=== PATIENT | male | born 1960 | race Caucasian/White ===

== ENCOUNTER 2019-04-19 15:08 | Outpatient (CLI) | payer OTHER, SELFPAY ==
--- NOTE | 2019-04-19 15:31 | CT_ITS ---
WS: [id number] CT CERVICAL SPINE TECHNIQUE: Noncontrast CT of the cervical spine with coronal and sagittal reformatted images. CLINICAL INFORMATION: CERVICAL STENOSIS OF SPINE COMPARISON: MRI 12 16,019 DLP: [id number] scans at [facility] use at least one of these dose optimization techniques: automat ed exposure control; mA and/or kV adjustment per patient size (includes targeted exams where dose is matched to clinical indication); or iterative reconstruction. FINDINGS: Straightening of the normal cervical lordosis. Mild spondylitic changes. Anterior hypertrophic change s C6 and C7. C2-C3: Normal. C3-C4: Mild facet arthropathy. Mild right and no significant left foraminal narrowing. Tiny shallow c entral protrusion. C4-C5: Disc osteophyte complex with endplate ridging. Moderate bilateral bony foraminal narrowing lef t greater than right. Uncovertebral joint hypertrophy. Mild central canal stenosis. C5-C6: Disc osteophyte complex with endplate ridging. Mild central canal stenosis. Severe left and mi ld right bony foraminal narrowing. Mild to moderate facet arthropathy. C6-C7: Disc osteophyte complex with endplate ridging. Mild central canal stenosis. Severe left and mi ld to moderate right bony foraminal narrowing. Uncovertebral joint hypertrophy. C7-T1: Tiny central protrusion. Spinal canal and foramen are patent. Visualized posterior nasopharynx: Normal. Prevertebral soft tissues: Normal. CT/CT cervical spin wo con* [id number] IMPRESSION: 1. Straightening of the normal cervical lordosis with mild spondylitic changes . 2. Mild central canal stenosis C4-C5 C5-C6 and C6-C7 due to disc osteophyte co mplexes. 3. Multilevel bony foraminal narrowing worse at left C4-C5, left C5-C6 and lef t C6-C7.
== END 2019-04-19 15:09 | disposition home or self-care (01) ==
LOC: RADWPI 15:12
PROVIDERS: Visit Provider Licensed Practical Nurse
DX: M48.02 Spinal stenosis, cervical region (principal); M47.892 Other spondylosis, cervical region
CPT/HCPCS: 72125

== ENCOUNTER → 2019-12-30 10:02 | Outpatient (BNVA) | payer OTHER, SELFPAY | PROVIDERS: Visit Provider Licensed Practical Nurse | DX: M43.12 Spondylolisthesis, cervical region (principal); M50.020 Cervical disc disorder with myelopathy, mid-cervical region, unspecified level | CPT/HCPCS: 99214 ==

== ENCOUNTER 2020-01-10 13:50 | Outpatient (CLI) | payer OTHER, SELFPAY ==
--- NOTE | 2020-01-10 14:30 | MR_ITS ---
WS: [id number] MRI CERVICAL SPINE HISTORY: M43.12 Spondylolisthesis, cervical region COMPARISON: 04/01/2019 and 04/19/2019 Straightening of the normal cervical lordosis. Mild spondylitic changes at all levels. Degenerative d isc space narrowing and osteophytes. Signal within the cervical cord is normal. Visualized posterior fossa is unremarkable. Craniocervical junction, C1 and C2 relationship, odontoid process and soft tissues are normal. C2-C3: Normal. C3-C4: Shallow central disc protrusion without stenosis. Minimal narrowing of the RIGHT foramen as be fore. C4-C5: Diffuse osteophytic ridging and annular disc bulging with facet arthritis. Complete effacement of ventral CSF with contact on the ventral cord. Moderate to severe central and bilateral foraminal stenosis. C5-C6: Mild diffuse annular disc bulging with facet arthritis. Small disc osteophyte complex proximal LEFT foramen. Mild central and bilateral foraminal stenosis, greatest on the LEFT. C6-C7: Diffuse annular disc bulging and osteophytosis. Mild central with moderate bilateral foraminal stenosis. Slightly greater stenosis on the LEFT. C7-T1: Shallow RIGHT paracentral disc protrusion. No stenosis. Paraspinal soft tissue are normal. MR/MR cervical spin wo con* [id number] IMPRESSION: 1. Moderate to severe central and bilateral foraminal stenosis at C4-5 due to disc osteophyte disease. 2. Mild central and bilateral foraminal stenosis at C5-6. 3. Mild central and moderate bilateral foraminal stenosis at C6-7. 4. Mild progression of degenerative changes since 04/01/2019.
--- NOTE | 2020-01-10 15:15 | XR_ITS ---
WS: [id number] LATERAL CERVICAL SPINE: 3 view. Lateral radiographs are performed in upright neutral, flexion and extension to the patient's toleranc e. HISTORY: Neck pain COMPARISON: 04/01/2019 Straightening of the normal cervical lordosis. 5 mm osteophytes extend posteriorly from C4 and C5. Mo derate disc space narrowing at C6-7. Less than 2 mm retrolisthesis of C4 during extension. No instabi lity. XR/XR cervical spine fl/ex [id number] IMPRESSION: 1. Less than 2 mm retrolisthesis of C4 during extension. 2. No significant instability. Vertebral body osteophytes extend posteriorly towards the thecal sac at the C4- 5 level.
== END 2020-01-10 13:51 | disposition home or self-care (01) ==
LOC: RADWPI 13:52
PROVIDERS: Visit Provider Licensed Practical Nurse
DX: M43.12 Spondylolisthesis, cervical region (principal); M50.020 Cervical disc disorder with myelopathy, mid-cervical region, unspecified level; M25.78 Osteophyte, vertebrae; M48.02 Spinal stenosis, cervical region
CPT/HCPCS: 72040; 72141

== ENCOUNTER → 2020-01-20 11:27 | Outpatient (BNVA) | payer OTHER, SELFPAY | PROVIDERS: Visit Provider Licensed Practical Nurse | DX: M43.12 Spondylolisthesis, cervical region (principal); M50.020 Cervical disc disorder with myelopathy, mid-cervical region, unspecified level | CPT/HCPCS: 99213 ==

== ENCOUNTER → 2021-02-11 07:56 | Outpatient (BNVA) | payer OTHER, SELFPAY | PROVIDERS: PCP Family Medicine; Referring Provider Specialist; Visit Provider Specialist | DX: M50.020 Cervical disc disorder with myelopathy, mid-cervical region, unspecified level (principal); Z87.891 Personal history of nicotine dependence | CPT/HCPCS: 95910 ==

== ENCOUNTER 2021-07-13 08:41 | Outpatient (CLI) | payer OTHER, SELFPAY ==
--- NOTE | 2021-07-13 09:02 | IR_ITS ---
WS: [id number] MYELOGRAM CERVICAL SPINE Fluoroscopic guided cervical myelogram CLINICAL INFORMATION: CERVICAL DISC DISORDER AT C4-C5 LEVEL W/MYELOPATHY COMPARISON: None. TECHNIQUE: The procedure, including risks, benefits, and complications, were discussed with the patie nt who agreed to proceed. A timeout was performed to confirm correct patient, procedure, and site. Using sterile technique, the patient was prepped and draped in the usual sterile fashion. After admin istration of local anesthesia using 1% preservative-free lidocaine and using fluoroscopic guidance, a 22-gauge spinal needle was advanced into the subarachnoid space at the L3-L4 level. Subsequently 13 cc of Omnipaque 300 was administered into the thecal sac. The needle was removed and hemostasis was a chieved. Subsequently the table was tilted down and contrast flowed freely into the cervical spine. S pot fluoroscopic images were obtained. FLUOROSCOPIC TIME: 0.9 minutes. # of spot films: 4. Spot fluoroscopic images demonstrate straightening of the normal cervical lordosis. Slight retrolisth esis C4 on C5. Disc space narrowing worse at C4-C5, C5-C6, and C6-C7. Anterior hypertrophic changes a t C6-C7. Normal C1-2 articulation. No instability on flexion-extension. Please see CT myelogram report for additional detail. IR/[place] [id number] IMPRESSION: 1. Uncomplicated cervical myelogram. 2. Slight retrolisthesis C4 on C5. No instability on flexion extension. 3. Disc space narrowing worse at C4-C5, C5-C6, and C6-C7. Anterior hypertrophi c changes at C6-C7.
--- NOTE | 2021-07-13 09:02 | CT_ITS ---
WS: [id number] CT CERVICAL MYELOGRAM TECHNIQUE: CT of the cervical spine coronal and sagittal reformatted images post intrathecal administ ration of contrast. CLINICAL INFORMATION: CERVICAL DISC DISORDER AT C4-C5 LEVEL W/MYELOPATHY COMPARISON: MRI January 10, 2020 DLP: 226.[address] scans at [facility] use at least one of these dose optimization techniques: automated e xposure control; mA and/or kV adjustment per patient size (includes targeted exams where dose is matc hed to clinical indication); or iterative reconstruction. FINDINGS: Straightening of the normal cervical lordosis. Moderate spondylitic changes more prominent at C5-C7. Anterior hypertrophic changes. Disc space narrowing worse at C5-C6 and C6-C7. C2-C3: No significant disc bulging. Spinal canal and foramen are patent. C3-C4: Moderate facet arthropathy. Spinal canal and foramen are patent. C4-C5: Disc osteophyte complex with endplate ridging. Mild central canal stenosis. Uncovertebral join t hypertrophy. Moderate LEFT and mild RIGHT bony foraminal narrowing. Mild facet arthropathy. C5-C6: Disc osteophyte complex with endplate ridging. Slight effacement of ventral thecal sac. Mild t o moderate facet arthropathy. Mild to moderate LEFT and no significant RIGHT foraminal narrowing. C6-C7: Disc osteophyte complex endplate ridging. Mild central canal stenosis. Slight contact of the c ervical cord. Endplate osteophytic ridging with moderate to severe LEFT and moderate RIGHT bony sera inal narrowing. C7-T1: Shallow RIGHT pericentral protrusion. Slight effacement of ventral thecal sac. Spinal canal an d foramen are patent. Visualized posterior fossa structures: Normal. CT/CT cervical spine w con [id number] IMPRESSION: 1. Straightening of the normal cervical lordosis with moderate spondylitic omer nges. 2. Disc osteophyte complex C4-C5 with mild central canal stenosis unchanged. 3. Moderate LEFT bony foraminal narrowing LEFT C4-C5 and mild to moderate LEFT C5-C6. 4. Severe LEFT C6-C7 and moderate RIGHT C6-C7 bony foraminal narrowing. 5. Tiny shallow central disc osteophytic protrusion C6-C7 with slight contact of the cervical cord. Spinal canal is patent. 6. Tiny shallow RIGHT pericentral protrusion C7-T1. 7. Overall no significant changes since the prior MRI.
[2021-07-13] MEDS: iohexol 240 mg/mL 50 mL Btl INTRATHECA (10:29)
== END 2021-07-13 08:42 | disposition home or self-care (01) ==
PROVIDERS: PCP Family Medicine; Visit Provider Specialist
DX: M50.021 Cervical disc disorder at C4-C5 level with myelopathy (principal); M25.78 Osteophyte, vertebrae; M50.223 Other cervical disc displacement at C6-C7 level
CPT/HCPCS: 62302; 72040; 72126

== ENCOUNTER → 2021-07-14 11:09 | Outpatient (BNVA) | payer SELFPAY | PROVIDERS: PCP Family Medicine; Visit Provider Surgery | DX: Z11.52 Encounter for screening for COVID-19 (principal) | CPT/HCPCS: 87635 ==

== ENCOUNTER 2021-07-21 05:56 | Day surgery (SDC) | payer OTHER, SELFPAY ==
[2021-07-19 12:01] VITALS: BMI 27.8
[2021-07-21 06:32] VITALS: BP 126/79; PULSE 70; RESP 16; TEMP 36.4; O2SAT 96
[2021-07-21] MEDS: sodium chloride 0.9% 1,000 ML 30 ML IV (06:38)
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
--- NOTE | 2021-07-21 07:25 | P.HP_ITS ---
Same Day Surgery H&P Indication for Procedure/HPI DATE OF PROCEDURE: July 21, 2021 CHIEF COMPLAINT/INDICATIONFOR SURGICAL PROCEDURE: screening colonoscopy PREOP DIAGNOSIS: diagnostic PLANNED PROCEDURE: Operation Date: 07/21/21 07:30 Proposed Procedures p Colonoscopy 99755/z12.11(Not Applicable) - Phu Andrew MD Medications/Allergies* Home Medications Medication Instructions Recorded Confirmed Type acetaminophen 500 mg tablet 500 mg PO Q6H PRN 06/08/21 07/21/21 History (Tylenol Extra Strength) esomeprazole magnesium 20 mg 20 mg PO DAILY 06/08/21 07/21/21 History capsule,delayed release (Nexium) loratadine 10 mg capsule 10 mg PO DAILY 06/08/21 07/21/21 History Allergies/Adverse Reactions Allergy/AdvReac Type Severity Reaction Status Date / Time No Known Allergies Allergy Verified 07/21/21 06:30 Current Medications: Generic Name Dose Route Start Last Admin Trade Name Freq PRN Reason Stop Dose Admin Sodium Chloride 1,000 mls @ 30 mls/hr 07/21/21 06:00 07/21/21 06:38 Sodium Chloride 0.9% IV 07/22/21 05:59 30 mls/hr .Q24H MIKKI Administration Pertinent History/Comorbid Conditions* Medical History (Updated 03/25/21 @ 13:25 by Billy Diggs MD) Cervical disc disorder with myelopathy of mid-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 Spondylolisthesis of cervical region Surgical History (Updated 07/10/19 @ 15:38 by Bill Ramirez MD) H/O hernia repair History of cholecystectomy Family History (Updated 07/08/19 @ 12:59 by Juliana Ramires LPN) CAD (coronary artery disease) Mother Cancer Father Social History Smoking and tobacco status: never smoked Alcohol intake: current Alcohol intake frequency: holidays/special occasions only Household members: significant other Marital status: Single Current occupational status: employed History of recent travel: No Pertinent Exam Findings alert, oriented x 3 and regular rate & rhythm Recommendations Surgery/Procedure today Coding Level of Care Code Acute [employer] for Griselda Dean
--- NOTE | 2021-07-21 07:49 | ANE.PACU2 ---
Inpatient post-anesthesia follow up: Airway intact: Yes Vital signs: Temperature 97.5 F Pulse Rate 70 Respiratory Rate 16 Blood Pressure 126/79 Pulse Oximetry 96 Oxygen Delivery Me thod Room Air Oxygen Flow Rate Fraction of Inspir ed Oxygen Hydration adequate: Yes Nausea and vomiting: No Pain level: 1 Mental status: Baseline
[2021-07-21 07:50] VITALS: BP 125/84; PULSE 67; RESP 18; TEMP 36.1; O2SAT 97
[2021-07-21 08:05] VITALS: BP 132/86; PULSE 55; RESP 18; O2SAT 97
== END 2021-07-21 08:20 | disposition home or self-care (01) ==
PROVIDERS: PCP Family Medicine; Visit Provider Surgery
PROC: 0DJD8ZZ Inspection of Lower Intestinal Tract, Via Natural or Artificial Opening Endoscopic (ICD-10-PCS; CPT 45378; principal; 2021-07-21 07:30)
DX: Z12.11 Encounter for screening for malignant neoplasm of colon (principal); D12.2 Benign neoplasm of ascending colon; D12.5 Benign neoplasm of sigmoid colon; K64.8 Other hemorrhoids; K57.30 Diverticulosis of large intestine without perforation or abscess without bleeding; K21.9 Gastro-esophageal reflux disease without esophagitis; Z82.49 Family history of ischemic heart disease and other diseases of the circulatory system
CPT/HCPCS: 45385; 88305; J2704; J7030